=== PATIENT | female | born 1970 | race Caucasian/White ===

== ENCOUNTER → 2019-06-04 | Outpatient (CLI) | payer BC ==
--- NOTE | 2019-06-04 13:46 | KCIC ---
EXAM: Pelvic sonogram. HISTORY: Pelvic pain. TECHNIQUE: Transabdominal and transvaginal sonographic imaging of the pelvis was performed. COMPARISON: None. FINDINGS: The uterus measures 9.2 x 5.0 x 5.2 cm. The endometrial stripe measures 8.5 mm in thickness. The ovaries are normal in size and demonstrate normal blood flow. There is an incidental nabothian cyst within the cervix. There is no pelvic free fluid. IMPRESSION: 1. Endometrial stripe thickness of 8.5 mm. This is within limits for a premenopausal female. There is abnormal for a postmenopausal female. Correlate with patient's menstrual history. 2. Unremarkable ovaries. Electronically signed by: Natacha Banks MD (06/04/2019 1:43 PM) [place] [id number]
== END | disposition home or self-care (01) ==
LOC: KCIC US 11:55
PROVIDERS: ATTEND Obstetrics & Gynecology
DX: N88.8 Other specified noninflammatory disorders of cervix uteri (principal)
CPT/HCPCS: 76830; 76856